=== PATIENT | male | born 2000 | race Two or more races ===

== ENCOUNTER 2021-06-28 19:28 | Emergency (ER) | payer OTHER ==
[2021-06-28 20:53] LABS: BASOPHIL 0.5 % (0-2); EOSINOPHIL 0.3 % (0-5); HCT 51.1 % (42.0-52.0); LYMPHOCYTE 39.5 % (15-48); MCH 30.8 pg (25.0-31.0); MCHC 35.2 g/dL (32.0-36.0); MCV 87.5 fL (78.0-100.0); MONOCYTE 12.2 % (0-12); MPV 9.7 fL (6.0-9.5); NRBC 0; PLT 291 K/uL (150-400); RBC 5.84 M/uL (4.70-6.00); WBC 6.3 K/uL (4.0-10.5)
[2021-06-28 20:55] LABS: NEUTROPHIL 47.3 % (41-80)
[2021-06-28 21:20] LABS: ALBUMIN 4.7 g/dL (3.4-5.0); BILIRUBIN - TOTAL 0.5 mg/dL (0.2-1.0); BUN/CREAT RATIO (CALC) 14.9 RATIO; CREATININE 0.87 mg/dL (0.67-1.17); GLOBULIN (CALCULATION) 4.7 g/dL; TOTAL PROTEIN 9.4 g/dL (6.4-8.2)
[2021-06-28 21:38] LABS: BILIRUBIN NEGATIVE (NEGATIVE); BLOOD NEGATIVE Ery/uL (NEGATIVE); CLARITY CLEAR (CLEAR); COLOR YELLOW (YELLOW); GLUCOSE (U) NORMAL (NORMAL); LEUKOCYTES NEGATIVE Leu/uL (NEGATIVE); NITRITE NEGATIVE (NEGATIVE); PROTEIN NEGATIVE (NEGATIVE); SPECIFIC GRAVITY 1.025 (1.001-1.030); UROBILINOGEN 0.2 mg/dL (0.2-1.0)
[2021-06-28] MEDS ORDERED: ZOFRAN4 M1 PO (22:43)
== END 2021-06-28 23:05 | disposition home or self-care (01) ==
LOC: FER 19:28
PROVIDERS: Nurse Practitioner Family
DX: U07.1 COVID-19 (principal); E86.0 Dehydration
CPT/HCPCS: 36415; 80053; 81003; 82150; 83690; 85025; J1885; J2405; J7030; Q9967